=== PATIENT | male | born 1950 | race Caucasian/White ===

== ENCOUNTER 2016-06-04 18:17 | Inpatient (IN) | payer BC ==
[2016-06-04 19:04] LABS: PARTIAL THROMBOPLASTIN TIME 24.2 SEC (23.5-35.8); PROTHROMBIN TIME 13.5 SEC (11.4-15.4)
[2016-06-04 19:05] LABS: ABSOLUTE BASOPHILS # (AUTO) 0.1 10^3/uL (0.0-0.2); ABSOLUTE EOSINOPHILS # (AUTO) 0.4 10^3/uL (0.0-0.6); ABSOLUTE LYMPHOCYTES (AUTO) 1.6 10^3/uL (0.5-4.7); ABSOLUTE MONOCYTES (AUTO) 0.8 10^3/uL (0.1-1.4); ABSOLUTE NEUT (AUTO) 10.8 10^3/uL (1.7-8.2); BASOPHILS % (AUTO) 0.4 % (0-2); EOSINOPHILS % (AUTO) 3.2 % (0-6); HEMATOCRIT 39.7 % (37.9-51.0); HEMOGLOBIN 13.1 g/dL (13.5-17.0); HGB HCT DIFFERENCE -0.4; LYMPHOCYTES % (AUTO) 11.8 % (13-45); MEAN CORPUSCULAR HEMOGLOBIN 28.6 pg (27.0-33.4); MEAN CORPUSCULAR VOLUME 87 fl (80-97); MONOCYTES % (AUTO) 6.1 % (3-13); RED BLOOD COUNT 4.58 10^6/uL (4.35-5.55); RED CELL DISTRIBUTION WIDTH 13.6 % (11.5-14.0); SEGMENTED NEUTROPHILS % (AUTO) 78.5 % (42-78); WHITE BLOOD COUNT 13.7 10^3/uL (4.0-10.5)
--- NOTE | 2016-06-04 19:08 | ER Document Report ---
ED Neuro Symptoms/Deficit - General Stated Complaint: LEG NUMBNESS Time seen by provider: 19:08 Mode of Arrival: Stretcher Information source: Patient - HPI Patient complains to provider of: Difficulty standing, Difficulty walking, Falling, Weakness Onset: Yesterday Awoke with symptoms: Yes Symptoms are: Noted on awakening Duration: Continues in ED Quality of pain: No pain Was STROKE ALERT Called: No Baseline Cognitive: Alert, oriented X 3 Baseline Gait: Walks w/o assistance New weakness: RUE, RLE Altered sensation: RLE Decreased ability to stand/walk: Weak, Off balance Similar symptoms previously: No Recently seen / treated by doctor: No Notes: Patient is a 65-year-old male presents to the emergency room complaining of right foot tingling sensation and weakness that he first noted yesterday upon awakening in the morning, he denies any injury, although he did stumble and fall 2 today due to weakness and his inability to effectively bear weight on the right side, he denies any bowel or bladder dysfunction, no low back pain, no neck pain, reports that throughout the day when she is asked him various questions which should be easy for him to answer he responds "I don't know", patient denies any history of similar symptoms previously Past Medical History - General Information source: Patient, Relative - Kathy - Social History Smoking Status: Former Smoker Family History: Reviewed & Not Pertinent Review of Systems - Review of Systems Constitutional: No symptoms reported EENT: No symptoms reported Cardiovascular: No symptoms reported Respiratory: No symptoms reported Gastrointestinal: No symptoms reported Genitourinary: No symptoms reported Male Genitourinary: No symptoms reported Musculoskeletal: No symptoms reported Skin: No symptoms reported Hematologic/Lymphatic: No symptoms reported Neurological/Psychological: See HPI -: Yes All other systems reviewed and negative Physical Exam - Vital signs Vitals: Resp Pulse Ox 15 95 06/04/16 18:52 06/04/16 18:52 Interpretation: Normal - General General appearance: Appears well, Alert - HEENT Head: Normocephalic, Atraumatic Eyes: Normal Pupils: PERRL - Respiratory Respiratory status: No respiratory distress Chest status: Nontender Breath sounds: Normal Chest palpation: Normal - Cardiovascular Rhythm: Regular Heart sounds: Normal auscultation Murmur: No - Abdominal Inspection: Normal Distension: No distension Bowel sounds: Normal Tenderness: Nontender Organomegaly: No organomegaly - Back Back: Normal, Nontender - Extremities General upper extremity: Normal inspection, Nontender, Normal color, Normal ROM , Normal temperature General lower extremity: Normal inspection, Normal color, Normal temperature. No: Diego's sign - Neurological Neuro grossly intact: Yes Cognition: Normal Orientation: AAOx4 [place] Coma Scale Eye Opening: Spontaneous Alex Coma Scale Verbal: Oriented Alex Coma Scale Motor: Obeys Commands Alex Coma Scale Total: 15 Speech: Normal Additional motor exam normals: Other - Patient has 3 out of 5 strength in the right lower extremity and 4-5 strength in the right upper extremity, 2+ radial and DP pulses, he reports decreased sensation in the right foot - Psychological Associated symptoms: Normal affect, Normal mood - Skin Skin Temperature: Warm Skin Moisture: Dry Skin Color: Normal Course - Re-evaluation Re-evalutation: 06/05/16 00:05 Patient symptoms are consistent with likely acute CVA, however symptoms have been going on for greater than 24 hours now, therefore he does not meet criteria for TPA, initial workup in the emergency room is fairly unremarkable, therefore patient will be admitted to the hospitalist service for further evaluation and treatment - Vital Signs Vital signs: Temp Pulse Resp BP Pulse Ox 91 12 152/83 H 94 06/05/16 00:00 06/05/16 01:32 06/05/16 01:32 06/05/16 01:32 - Laboratory Result Diagrams: 06/04/16 18:35 06/04/16 18:35 Laboratory results interpreted by me: 06/04/16 06/04/16 18:35 18:35 WBC 13.7 H Hgb 13.1 L Seg Neutrophils % 78.5 H Lymphocytes % 11.8 L Absolute Neutrophils 10.8 H Carbon Dioxide 19 L Anion Gap 20 H BUN 29 H Creatinine 1.48 H Est GFR ( Amer) 58 L Est GFR (Non-Af Amer) 48 L Glucose 135 H Creatine Kinase 338 H - Diagnostic Test Radiology reviewed: Image reviewed, Reports reviewed - EKG Interpretation by Me EKG shows normal: Sinus rhythm Rate: Tachycardia Rhythm: PVC's - Transfer of Care Care transferred to following provider: Dr. Anderson Critical Care Note - Critical Care Note Total time excluding time spent on procedures (mins): 40 Comments: Patient with signs and symptoms consistent with acute CVA Discharge - Discharge Clinical Impression: Acute CVA (cerebrovascular accident) Condition: Fair Disposition: ADMITTED INPATIENT Admitting Provider: Hospitalist Unit Admitted: [facility]
[2016-06-04 19:11] LABS: ALANINE AMINOTRANSFERASE 37 U/L (21-72); ALBUMIN 4.5 g/dL (3.5-5.0); ALKALINE PHOSPHATASE 81 U/L (38-126); ASPARTATE AMINO TRANSFERASE 32 U/L (17-59); BILIRUBIN,DIRECT 0.3 mg/dL (0.0-0.4); BILIRUBIN,TOTAL 0.7 mg/dL (0.2-1.3); BLOOD UREA NITROGEN 29 mg/dL (7-20); CALCIUM 10.2 mg/dL (8.4-10.2); CREATINE KINASE 338 U/L (55-170); CREATININE RESULT 1.48 mg/dL (0.52-1.25); GLUCOSE 135 mg/dL (75-110); TOTAL PROTEIN 7.9 g/dL (6.3-8.2)
[2016-06-04 19:22] LABS: CARBON DIOXIDE 19 mmol/L (22-30); CHLORIDE 106 mmol/L (98-107); CREATINE KINASE MB 4.46 ng/mL (<4.55); POTASSIUM 4.9 mmol/L (3.6-5.0); SODIUM 144.5 mmol/L (137-145)
[2016-06-04 19:26] LABS: TROPONIN I < 0.012 ng/mL
[2016-06-04 19:27] LABS: ANION GAP 20 (5-19)
[2016-06-05] MEDS ORDERED: ACETAMINOPHEN 325 MG TABLET PO PRN (04:47)
[2016-06-05] MEDS ORDERED: DEXTROSE 40% GEL 15 GM TUBE PO PRN ×2 (04:48)
[2016-06-05] MEDS ORDERED: DEXTROSE 50%-WATER 25 GM/50 ML DISP.SYRIN IV PRN ×2 (04:48)
[2016-06-05] MEDS ORDERED: INSULIN LISPRO 100 UNIT/ML 3 ML VIAL SUBCUT PRN (04:48)
[2016-06-05] MEDS ORDERED: GLUCAGON,HUMAN RECOMB 1 MG INJ IM PRN (04:48)
--- NOTE | 2016-06-05 05:04 | PDOC H&P ---
History of Present Illness Admission Date/PCP: 06/05/16 02:20 PIERRE PRETTY MD Endocrin Dr. Granados Patient complains of: rt leg numbness History of Present Illness: JOLIE GONZALEZ is a 65 year old slightly obese male with underlying type 1.5 diabetes mellitus, hypertension, hyperlipidemia, with a history of atrial fibrillation, status post ablation in 2009, who presents to the emergency room for evaluation of above complaint. Upon awakening the morning of the third, he noted right foot tingling and weakness. Fell 2 that day due to right-sided weakness. Also was not able to answer a number of basic questions presented to him by . No prior such episodes, including stroke, TIA, mini stroke, or seizure. States symptoms have greatly improved, but is still not quite back to normal. No injury to neck or back. No headache, chest pain, abdominal pain. No nausea vomiting, fever or chills. Patient has been discussed with emergency room physician who evaluated the patient. . Laboratory results are listed in [employer] and are reviewed. X-ray summary results are listed below, with full report(s) reviewed. . EKG reviewed. No old EKG available for comparison. Social history/personal habits: . Has children. Lives with . Retired. Former smoker, but none for several years. Rare alcohol. No illicit drug use. Allergies/adverse reactions are listed in [employer] and are reviewed. NKDA. Home medications Home medications initially autopopulated into [employer] may not accurately reflect patient's true medications, dosages, and/or frequencies. REVIEW OF SYSTEMS: Constitutional: No fever or chills. Eyes: No current vision complaints. ENT: No swallowing problems or complaints. No hearing problems or complaints. Pulmonary: No current complaints. Cardiovascular: No current complaints, including chest pain. Gastrointestinal: No current complaints, including nausea or vomiting. Skin: No current complaints, including rashes. Hematologic: Easy bruising. Neurologic: See history and present illness. Musculoskeletal: No current complaints, including painful joints. Psychiatric: No current complaints, including anxiety or depression. Endocrine: No current complaints, including polyuria. Genitourinary: No current complaints, including dysuria. PHYSICAL EXAMINATION: 6 feet 1 inches tall. 95.3 kg. Blood pressure 133/85. Pulse 99 and regular. 96% saturation on room air. Respirations are 26 and unlabored. Temperature not recorded on the chart; skin feels normothermic. Somewhat overweight otherwise well nourished well-developed male appearing approximately his stated age. Initially asleep, but awakens easily. Wasn't alert and cooperative. No obvious distress other than somewhat anxious. Skin is warm and dry. No grossly obvious evidence of rash in areas of skin examined. No subcutaneous nodules palpated. ENT: Hearing grossly normal to normal conversation. Tongue midline on protrusion pink and slightly moist. Eyes: No scleral icterus. Pupils equal and reactive to light at 4 mm. [place] conjunctivae. No raccoon eyes. Neck is supple and nontender to gentle active range of motion and palpation. Midline trachea. No palpable thyroid nodule mass enlargement or tenderness. Lymphatic: No palpable cervical or clavicular nodes. Neck and lymphatic exams limited by patient body habitus. Psychiatric: Reasonable insight into acute and chronic medical issues. Oriented to time location and why here. Lungs: Auscultation reveals clear and equal breath sounds bilaterally. No use of accessory respiratory muscles. Cardiovascular: Heart regular rate and rhythm, without gallop murmur or rub. No carotid or abdominal aortic bruits. No ankle or pedal edema. palpable dorsalis pedis pulses. Abdomen: soft, slightly distended nontender with positive bowel sounds. Unable to adequately evaluate abdomen for masses or organomegaly due to distention. Extremities: Hands and Feet are warm and dry. No calf tenderness to compression. No grossly obvious visual evidence of calf swelling. Gentle manipulation of upper and lower extremities fails to reveal any obvious evidence of injury or instability to involved major joints. Neurologic: Cranial Nerves II through XII are grossly intact. Light touch intact at face, upper and lower extremities. Motor function of major muscle groups upper and lower extremities 5 over 5 and symmetric, with the exception that hand butter printer on the right is very slightly weaker than on the left, with similar finding on flexion of the right thigh at the hip versus that on the left. Patellar reflexes absent. Absent Babinski. Past Medical History Cardiac Medical History: Reports: Atrial Fibrillation, Hyperlipidema, Hypertension Denies: Congestive Heart Failure, DVT, Myocardial Infarction, Pulmonary Embolism Pulmonary Medical History: Denies: Asthma, Chronic Obstructive Pulmonary Disease (COPD), Sleep Apnea Endocrine Medical History: Reports: Diabetes Mellitus Type 1 - Type I.5 Denies: Hyperthyroidism, Hypothyroidism GI Medical History: Denies: Cirrhosis, Gastroesophageal Reflux Disease, Hepatitis, Peptic Ulcer Disease Musculoskeltal Medical History: Denies: Arthritis Psychiatric Medical History: Denies: Alcohol Dependency, Depression, General Anxiety Disorder, Substance Abuse, Tobacco Dependency Infectious Medical History: Denies: Clostridium Difficile, Hepatitis B, Hepatitis C, Methicillin- Resistant Staph Aureus Past Surgical History Past Surgical History: Reports: Orthopedic Surgery - Knee surgery, Other - Ablation for atrial fibrillation. Social History Information Source: Patient, Emergency Med Personnel, [facility] Records Lives with: Spouse/Significant other Smoking Status: Former Smoker Frequency of Alcohol Use: Occasional Drugs: None - Advance Directive Resuscitation Status: Full Code Surrogate healthcare decision maker:: Family History Family History: Reviewed & Not Pertinent, CAD Parental Family History Reviewed: Yes Children Family History Reviewed: Yes Sibling(s) Family History Reviewed.: Yes Medication/Allergy Home Medications: Atorvastatin Calcium [Atorvastatin Calcium] 1 tab PO QHS 06/05/16 Glimepiride [Glimepiride] 1 tab PO DAILY 06/05/16 Insulin Degludec [Tresiba Flextouch U-200] 30 units SQ DAILY 06/05/16 Metformin HCl [Metformin HCl ER] 1 tab PO BID 06/05/16 Ramipril [Ramipril] 1 cap PO DAILY 06/05/16 Allergies/Adverse Reactions: Sulfa (Sulfonamide Antibiotics) Allergy (Verified 06/05/16 05:32) Physical Exam Vital Signs: Temp Pulse Resp BP Pulse Ox 91 11 L 122/67 96 06/05/16 00:00 06/05/16 02:32 06/05/16 02:32 06/05/16 02:32 Intake & Output 06/04/16 06/05/16 06/06/16 00:59 00:59 00:59 Weight 95.254 kg Results Impressions: Chest X-Ray 06/04/16 18:59 IMPRESSION: NO ACUTE RADIOGRAPHIC FINDING IN THE CHEST. Head CT 06/04/16 18:59 IMPRESSION: MILD CHRONIC CHANGES OF ATROPHY AND MICROVASCULAR ISCHEMIA. NO ACUTE PROCESS. Assessment & Plan - Diagnosis (1) HLD (hyperlipidemia) Qualifiers: Hyperlipidemia type: unspecified Qualified Code(s): E78.5 - Hyperlipidemia, unspecified Is this a current diagnosis for this admission?: YesPlan: Lipid panel. Resume home medications as appropriate once these have been determined and reviewed. (2) HTN (hypertension) Qualifiers: Hypertension type: essential hypertension Qualified Code(s): I10 - Essential (primary) hypertension Is this a current diagnosis for this admission?: YesPlan: Permissive hypertension. (3) Diabetes mellitus type 1.5, managed as type 2 Is this a current diagnosis for this admission?: YesPlan: Accu-Cheks with appropriate sliding scale coverage. Clear liquid diet; advance as tolerated.Resume home medications as appropriate once these have been determined and reviewed. (4) Right hemiparesis Is this a current diagnosis for this admission?: Yes (5) Acute focal neurological deficit Is this a current diagnosis for this admission?: YesPlan: Patient will be admitted under CVA/TIA protocol. Multiple imaging procedures, intracranial, vascular, and cardiac. lipid panel. Permissive hypertension. Patient is a full code. I have strongly urged patient not to get out of bed without calling nursing staff, to avoid a fall with injury.] Knee high SCDs for DVT prophylaxis, along with subcutaneous heparin. Impression and plans were discussed with patient, who concurs. Time spent in evaluation and management of patient: 63 minutes (6) Renal insufficiency Is this a current diagnosis for this admission?: YesPlan: No old labs available for comparison. Follow-up Chem-7. - Inpatient Certification Based on my medical assessment, after consideration of the patient's comorbidities, presenting symptoms, or acuity I expect that the services needed warrant INPATIENT care.: Yes I certify that my determination is in accordance with my understanding of Medicare's requirements for reasonable and necessary INPATIENT services [42 CFR 412.3e].: Yes Medical Necessity: Need Close Monitoring Due to Risk of Patient Decompensation, Need for Neurological Checks, Risk of Diagnosis Which Will Require Inpatient Eval/Care/Monitoring Post Hospital Care: D/C or Transfer Summary
[2016-06-05 06:47] LABS: ABSOLUTE BASOPHILS # (AUTO) 0.1 10^3/uL (0.0-0.2); ABSOLUTE LYMPHOCYTES (AUTO) 2.2 10^3/uL (0.5-4.7); ABSOLUTE MONOCYTES (AUTO) 0.7 10^3/uL (0.1-1.4); BASOPHILS % (AUTO) 0.6 % (0-2); EOSINOPHILS % (AUTO) 11.4 % (0-6); HEMATOCRIT 38.9 % (37.9-51.0); HEMOGLOBIN 12.9 g/dL (13.5-17.0); HGB HCT DIFFERENCE -0.2; LYMPHOCYTES % (AUTO) 24.6 % (13-45); MEAN CORPUSCULAR HEMOGLOBIN 28.8 pg (27.0-33.4); MEAN CORPUSCULAR HGB CONC 33.2 g/dL (32.0-36.0); MEAN CORPUSCULAR VOLUME 87 fl (80-97); MONOCYTES % (AUTO) 7.9 % (3-13); RED BLOOD COUNT 4.48 10^6/uL (4.35-5.55); RED CELL DISTRIBUTION WIDTH 13.5 % (11.5-14.0); SEGMENTED NEUTROPHILS % (AUTO) 55.5 % (42-78)
[2016-06-05 06:59] LABS: ANION GAP 14 (5-19); BLOOD UREA NITROGEN 30 mg/dL (7-20); CALCIUM 10.1 mg/dL (8.4-10.2); CARBON DIOXIDE 24 mmol/L (22-30); CHLORIDE 107 mmol/L (98-107); CREATININE RESULT 1.45 mg/dL (0.52-1.25); Direct HDL 36 mg/dL (>40); GLUCOSE 134 mg/dL (75-110); POTASSIUM 4.8 mmol/L (3.6-5.0); SODIUM 144.9 mmol/L (137-145); TRIGLYCERIDES 70 mg/dL (<150)
[2016-06-05 07:10] LABS: DIRECT LDL 64 mg/dL (<100)
[2016-06-05] MEDS: ASPIRIN 325 MG TABLET, ENT COATED PO SCH (09:29)
[2016-06-05] MEDS: HEPARIN SOD (PORCINE) 5,000 UNIT/ML 1 ML SYRINGE SUBCUT SCH ×2 (09:29→22:19)
[2016-06-05] MEDS: DOCUSATE SODIUM 100 MG CAPSULE PO SCH ×2 (09:42→16:52)
[2016-06-05 10:05] LABS: APPEARANCE,URINE CLEAR; BILIRUBIN,URINE NEGATIVE (NEGATIVE); GLUCOSE, URINE >=500 mg/dL (NEGATIVE); KETONES,URINE NEGATIVE (NEGATIVE); LEUKOCYTE ESTERASE,URINE NEGATIVE (NEGATIVE); NITRITE,URINE NEGATIVE (NEGATIVE); PROTEIN,URINE 30 mg/dL (NEGATIVE); URINE SPECIFIC GRAVITY 1.016; UROBILINOGEN,URINE NEGATIVE mg/dL (<2.0)
--- NOTE | 2016-06-05 13:54 | XCELERA REPORT ---
[address] [address] Transthoracic Echocardiogram Report Name: JOLIE GONZALEZ Age: 65 yrs Gender: Male : 1950 Patient Status: Inpatient Patient Location: [id number]\S\318\[id number]\B Study Date: 06/05/2016 09:52 AM Height: 73 in Weight: 210 lb BSA: 2.2 m2 Procedure: A complete two-dimensional transthoracic echocardiogram was performed (2D, M-mode, spectral and color flow Doppler). The study was technically adequate with some images being suboptimal in quality. Reason For Study: tia vs cva--rt hemiparesis Ordering Physician: DOROTHY ZARATE Performed By: Camila Escobar Interpretation Summary The left ventricular ejection fraction is normal. There is borderline concentric left ventricular hypertrophy. Doppler measurements suggest pseudonormalized left ventricular relaxation, which is associated with grade II/IV or mild to moderate diastolic dysfunction The left ventricle is grossly normal size. Wall motion cannot be accurately commented on, but no definite regional wall motion abnormalities noted. The right ventricular systolic function is normal. The left atrial size is normal. The right atrium is normal. There is a trace to mild amount of mitral regurgitation There is no mitral valve stenosis. No aortic regurgitation is present. There is no aortic valve stenosis There is a trace or physiologic amount of tricuspid regurgitation Right ventricular systolic pressure is at the upper limits of normal The aortic root is not well visualized. The inferior vena cava appeared normal and decreased > 50% with respiration (RAP 5-10 mmHg) There is no pericardial effusion. No definite cardiac source of CVA/TIA noted on this particular trans- thoracic study. Consider LAVERN if clinically indicated. May consider mobile cardiac telemetry monitoring (MCT) for ruling out transient AFIB. MMode/2D Measurements \T\ Calculations RVDd: 3.0 cm LVIDd: 5.1 cm FS: 34.3 % Ao root diam: 3.2 cm IVSd: 0.89 cm LVIDs: 3.3 cm EDV(Teich): 122.5 ml LVPWd: 0.93 cm ESV(Teich): 45.2 ml Ao root area: 8.1 cm2 EF(Teich): 63.1 % LA dimension: 3.4 cm Doppler Measurements \T\ Calculations MV E max jihan: MV P1/2t max jihan: Ao V2 max: LV V1 max P.4 cm/sec 44.4 cm/sec 89.7 cm/sec 3.5 mmHg MV A max jihan: MV P1/2t: 50.1 msec Ao max PG: LV V1 max: 77.0 cm/sec 3.2 mmHg 93.8 cm/sec MV E/A: 0.56 MVA(P1/2t): 4.4 cm2 MV dec slope: 259.9 cm/sec2 PA V2 max: PI end-d jihan: TR max jihan: 62.9 cm/sec 98.9 cm/sec 219.8 cm/sec PA max PG: TR max P.6 mmHg 19.3 mmHg Left Ventricle The left ventricle is grossly normal size. There is borderline concentric left ventricular hypertrophy. The left ventricular ejection fraction is normal. Doppler measurements suggest pseudonormalized left ventricular relaxation, which is associated with grade II/IV or mild to moderate diastolic dysfunction. Wall motion cannot be accurately commented on, but no definite regional wall motion abnormalities noted. Right Ventricle The right ventricle is normal in size, thickness and function. There is normal right ventricular wall thickness. The right ventricular systolic function is normal. Atria The right atrium is normal. The left atrial size is normal. Interarterial septum not well visualized and not well dopplered. Cannot comment on ASD/PFO presence. Mitral Valve The mitral valve is grossly normal. There is no mitral valve stenosis. There is a trace to mild amount of mitral regurgitation. Aortic Valve The aortic valve is grossly normal. There is no aortic valve stenosis. No aortic regurgitation is present. Tricuspid Valve The tricuspid valve is not well visualized, but is grossly normal. There is no tricuspid stenosis. There is a trace or physiologic amount of tricuspid regurgitation. Right ventricular systolic pressure is at the upper limits of normal. Pulmonic Valve The pulmonic valve is not well visualized. Great Vessels The aortic root is not well visualized. The inferior vena cava appeared normal and decreased > 50% with respiration (RAP 5-10 mmHg). Effusions There is no pericardial effusion. There is no pleural effusion. Incidental Findings No definite cardiac source of CVA/TIA noted on this particular trans- thoracic study. Consider LAVERN if clinically indicated. May consider mobile cardiac telemetry monitoring (MCT) for ruling out transient AFIB. : DOROTHY ZARATE > Amanuel Rondon
[2016-06-05] MEDS ORDERED: RAMIPRIL 5 MG CAPSULE PO ONE (15:00)
--- NOTE | 2016-06-05 15:23 | PDOC PROGRESS REPORT ---
Subjective Progress Note for:: 06/05/16 Subjective:: Patient is being seen on morning rounds. He is awake alert oriented 3. He continues to have some weakness and numbness in the right lower extremity, but he states is much improved since admission. He denies any chest pain, palpitations or dyspnea. He denies shortness of breath, or cough. He denies any nausea, vomiting or abdominal pain. He has no facial drooping, upper extremity weakness, only mild weakness of the right lower extremity. Physical Exam Vital Signs: Temp Pulse Resp BP Pulse Ox 97.5 F 92 18 149/87 H 98 06/05/16 07:23 06/05/16 07:23 06/05/16 07:23 06/05/16 07:54 06/05/16 07:23 Intake & Output 06/04/16 06/05/16 06/06/16 06:59 06:59 06:59 Weight 106 kg General appearance: PRESENT: no acute distress, well-developed, well-nourished Head exam: PRESENT: atraumatic, normocephalic Eye exam: PRESENT: conjunctiva pink, EOMI, PERRLA. ABSENT: scleral icterus Ear exam: PRESENT: normal external ear exam Mouth exam: PRESENT: moist, tongue midline Neck exam: ABSENT: carotid bruit, JVD, lymphadenopathy, thyromegaly Respiratory exam: PRESENT: clear to auscultation enio. ABSENT: rales, rhonchi, wheezes Cardiovascular exam: PRESENT: RRR. ABSENT: diastolic murmur, rubs, systolic murmur Pulses: PRESENT: normal dorsalis pedis pul Vascular exam: PRESENT: normal capillary refill GI/Abdominal exam: PRESENT: normal bowel sounds, soft. ABSENT: distended, guarding, mass, organolmegaly, rebound, tenderness Rectal exam: PRESENT: deferred Extremities exam: PRESENT: full ROM. ABSENT: calf tenderness, clubbing, pedal edema Musculoskeletal exam: PRESENT: full ROM Neurological exam: PRESENT: alert, awake, oriented to person, oriented to place , oriented to time, oriented to situation, CN II-XII grossly intact, other - right lower extremity weakness. ABSENT: motor sensory deficit Psychiatric exam: PRESENT: appropriate affect, normal mood. ABSENT: homicidal ideation, suicidal ideation Skin exam: PRESENT: dry, intact, warm. ABSENT: cyanosis, rash Results Laboratory Results: 06/05/16 06:30 06/05/16 06:30 06/05/16 06/05/16 06/05/16 06:30 06:30 09:30 WBC 9.0 RBC 4.48 Hgb 12.9 L Hct 38.9 MCV 87 MCH 28.8 MCHC 33.2 RDW 13.5 Plt Count 206 Seg Neutrophils % 55.5 Lymphocytes % 24.6 Monocytes % 7.9 Eosinophils % 11.4 H Basophils % 0.6 Absolute Neutrophils 5.0 Absolute Lymphocytes 2.2 Absolute Monocytes 0.7 Absolute Eosinophils 1.0 H Absolute Basophils 0.1 Sodium 144.9 Potassium 4.8 Chloride 107 Carbon Dioxide 24 Anion Gap 14 BUN 30 H Creatinine 1.45 H Est GFR ( Amer) 59 L Est GFR (Non-Af Amer) 49 L Glucose 134 H Calcium 10.1 Triglycerides 70 Cholesterol 117.90 LDL Cholesterol Direct 64 VLDL Cholesterol 14.0 HDL Cholesterol 36 L Urine Color YELLOW Urine Appearance CLEAR Urine pH 5.0 Ur Specific [place] 1.016 Urine Protein 30 H Urine Glucose (UA) >=500 H Urine Ketones NEGATIVE Urine Blood SMALL H Urine Nitrite NEGATIVE Ur Leukocyte Esterase NEGATIVE Urine WBC (Auto) 1 Urine RBC (Auto) 0 Impressions: Chest X-Ray 06/04/16 18:59 IMPRESSION: NO ACUTE RADIOGRAPHIC FINDING IN THE CHEST. Head CT 06/04/16 18:59 IMPRESSION: MILD CHRONIC CHANGES OF ATROPHY AND MICROVASCULAR ISCHEMIA. NO ACUTE PROCESS. Brain MRI with MRA 06/05/16 04:53 IMPRESSION: Acute nonhemorrhagic punctate infarcts in the left frontal cortex and subcortical white matter anteriorly, punctate acute subcortical nonhemorrhagic infarct left posterior frontal region. Unremarkable [place] MRA exam Carotid Doppler Study 06/05/16 04:54 IMPRESSION: Right: Greater than 70% stenosis distal common carotid artery. 50 - 69% stenosis of the proximal ICA. Left: Less than 50% stenosis of the ICA. Head MRI 06/05/16 07:54 IMPRESSION: Acute nonhemorrhagic punctate infarcts in the left frontal cortex and subcortical white matter anteriorly, punctate acute subcortical nonhemorrhagic infarct left posterior frontal region. Unremarkable [place] MRA exam Assessment & Plan - Diagnosis (1) Acute CVA (cerebrovascular accident) Is this a current diagnosis for this admission?: YesPlan: MRI shows acute punctate infarcts left frontal cortex (2) Acute focal neurological deficit Is this a current diagnosis for this admission?: Yes (3) Right hemiparesis Is this a current diagnosis for this admission?: YesPlan: Patient with resolving right hemiparesis, now with 4/5 right lower extremity strength (4) Renal insufficiency Is this a current diagnosis for this admission?: YesPlan: Avoid nephrotoxic medications and dosages. (5) Diabetes mellitus type 1.5, managed as type 2 Is this a current diagnosis for this admission?: YesPlan: Continue home medications and sliding scale coverage (6) HLD (hyperlipidemia) Qualifiers: Hyperlipidemia type: unspecified Qualified Code(s): E78.5 - Hyperlipidemia, unspecified Is this a current diagnosis for this admission?: YesPlan: continue statin (7) HTN (hypertension) Qualifiers: Hypertension type: essential hypertension Qualified Code(s): I10 - Essential (primary) hypertension Is this a current diagnosis for this admission?: YesPlan: Continue current antihypertensives, patient is normotensive. - Time Time Spent with patient: 25-34 minutes Medications reviewed and adjusted accordingly: Yes Anticipated discharge: Home with Homehealth Within: within 24 hours
[2016-06-05] MEDS: METFORMIN HCL 500 MG TABLET PO SCH ×2 (16:52→22:18)
[2016-06-05] MEDS ORDERED: (PENDING PHARMACY ID) (Metformin Hcl [Metformin Hcl Er] 1,000 MG) PO SCH (18:00)
[2016-06-05] MEDS ORDERED: ATORVASTATIN CALCIUM 20 MG TABLET PO SCH (22:00)
[2016-06-06] MEDS: METFORMIN HCL 500 MG TABLET PO SCH ×2 (08:45→12:01)
[2016-06-06] MEDS ORDERED: INSULIN DEGLUDEC 30 UNIT SQ SCH (10:00)
[2016-06-06] MEDS ORDERED: INSULIN DEGLUDEC 30 UNIT INJ SCH ×2 (10:00)
[2016-06-06] MEDS ORDERED: RAMIPRIL 5 MG CAPSULE PO SCH (10:00)
[2016-06-06] MEDS ORDERED: GLIMEPIRIDE 4 MG TABLET PO SCH (10:00)
[2016-06-06] MEDS: HEPARIN SOD (PORCINE) 5,000 UNIT/ML 1 ML SYRINGE SUBCUT SCH (10:13)
[2016-06-06] MEDS: ASPIRIN 325 MG TABLET, ENT COATED PO SCH (10:13)
[2016-06-06] MEDS: DOCUSATE SODIUM 100 MG CAPSULE PO SCH (10:19)
[2016-06-06 12:44] VITALS: BP 124/82
--- NOTE | 2016-06-06 15:29 | PDOC DISCHARGE SUMMARY ---
General - Admit/Disc Date/PCP Admission Date/Primary Care Provider: 06/05/16 04:47 PIERRE PRETTY MD Discharge Date: 06/06/16 - Discharge Diagnosis (1) Acute CVA (cerebrovascular accident) Is this a current diagnosis for this admission?: YesSummary: Patient had 2 punctate infarcts in the left frontal cortex. His placed on full aspirin. Initially he had significant right-sided weakness including his upper arm. Right upper arm weakness was resolving, he continued to have some paresthesia and mild weakness in the right lower extremity 4 over 5. He was evaluated by physical therapy and occupational therapy. He was recommended to have home physical therapy and occupational therapy continued. Patient underwent carotid duplex which was negative, transthoracic echo which showed no abnormalities and normal EF, MRI showed 2 punctate infarcts in the left cerebral cortex. He'll follow-up with his cardiology and [place] for LAVERN to rule out PFO (2) Acute focal neurological deficit Is this a current diagnosis for this admission?: YesSummary: As #1. (3) Right hemiparesis Is this a current diagnosis for this admission?: YesSummary: Improvement of symptoms from admission. He now has 4 over 5 muscle strength in right upper and lower extremeties. No facial droop or dysphagia. (4) Renal insufficiency Is this a current diagnosis for this admission?: YesSummary: Current is back to baseline. 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 (6) HLD (hyperlipidemia) Is this a current diagnosis for this admission?: YesSummary: Continue statin (7) HTN (hypertension) Is this a current diagnosis for this admission?: YesSummary: Continue current medications he is normotensive. - Additional Information Resuscitation Status: Full Code Discharge Diet: Diabetic Discharge Activity: Activity As Tolerated, Balance Activity w/Rest, Slowly Increase Activity Home Medications: Atorvastatin Calcium 20 mg PO QHS 06/05/16 Glimepiride 4 mg PO DAILY 06/05/16 Insulin Degludec [Tresiba Flextouch U-200] 30 units SQ DAILY 06/05/16 Metformin HCl [Metformin HCl ER] 1,000 mg PO BID 06/05/16 Ramipril 5 mg PO DAILY 06/05/16 Acetaminophen [Tylenol 325 mg Tablet] 650 mg PO Q4HP PRN tablet 06/06/16 Aspirin [Ecotrin 325 mg EC Tablet] 325 mg PO DAILY tabec 06/06/16 Walker [Folding Walker] 1 each MC ASDIR PRN #1 each 06/06/16 History of Present Illness Patient complains of: Right leg numbness History of Present Illness: JOLIE GONZALEZ is a 65 year old slightly obese male with underlying type 1.5 diabetes mellitus, hypertension, hyperlipidemia, with a history of SVT , status post ablation in 2009, who presents to the emergency room for evaluation of above complaint. Upon awakening the morning of the third, he noted right foot tingling and weakness. Fell 2 that day due to right-sided weakness. Also was not able to answer a number of basic questions presented to him by . No prior such episodes, including stroke, TIA, mini stroke, or seizure. States symptoms have greatly improved, but is still not quite back to normal. No injury to neck or back. No headache, chest pain, abdominal pain. No nausea vomiting, fever or chills. . Hospital Course Hospital Course: Patient was admitted to [facility] on telemetry. He had MENDS done per protocol overnight. He was able to pass bedside swallow evaluation by nursing. Following morning he was highly by physical therapy and occupational therapy. He was able to ambulate with a rolling walker. Therapy felt he would be safely discharged with home physical therapy and occupational therapy. He underwent carotid duplex which was unremarkable for any stenosis. He underwent transthoracic echocardiogram which showed normal ejection fraction no valvular abnormalities. MRI of the brain showed punctate infarcts the left cerebral cortex which were acute. He had no arrhythmias on telemetry. Discharge planning was consulted to assist with discharge plan. Patient would like to follow-up with his director community organization for outpatient [facility] to rule out PFO is cause of his stroke. Will follow-up with his primary care provider in one week. Physical Exam Vital Signs: Temp Pulse Resp BP Pulse Ox 98.7 F 94 20 149/87 H 97 06/06/16 12:17 06/06/16 12:17 06/06/16 12:17 06/06/16 12:17 06/06/16 12:17 Intake & Output 06/05/16 06/06/16 06/07/16 06:59 06:59 06:59 Intake Total 1139 710 Balance 1139 710 Weight 106 kg General appearance: PRESENT: no acute distress, well-developed, well-nourished Head exam: PRESENT: atraumatic, normocephalic Eye exam: PRESENT: conjunctiva pink, EOMI, PERRLA. ABSENT: scleral icterus Ear exam: PRESENT: normal external ear exam Mouth exam: PRESENT: moist, tongue midline Neck exam: ABSENT: carotid bruit, JVD, lymphadenopathy, thyromegaly Respiratory exam: PRESENT: clear to auscultation enio. ABSENT: rales, rhonchi, wheezes Cardiovascular exam: PRESENT: RRR. ABSENT: diastolic murmur, rubs, systolic murmur Pulses: PRESENT: normal dorsalis pedis pul Vascular exam: PRESENT: normal capillary refill GI/Abdominal exam: PRESENT: normal bowel sounds, soft. ABSENT: distended, guarding, mass, organolmegaly, rebound, tenderness Rectal exam: PRESENT: deferred Extremities exam: PRESENT: full ROM. ABSENT: calf tenderness, clubbing, pedal edema Musculoskeletal exam: PRESENT: ambulatory Neurological exam: PRESENT: alert, awake, oriented to person, oriented to place , oriented to time, oriented to situation, CN II-XII grossly intact, other - 4/ 5 right extremity strength, 5/5 on the left. ABSENT: motor sensory deficit Psychiatric exam: PRESENT: appropriate affect, normal mood. ABSENT: homicidal ideation, suicidal ideation Skin exam: PRESENT: dry, intact, warm. ABSENT: cyanosis, rash Results Laboratory Results: 06/05/16 06:30 06/05/16 06:30 Impressions: Chest X-Ray 06/04/16 18:59 IMPRESSION: NO ACUTE RADIOGRAPHIC FINDING IN THE CHEST. Head CT 06/04/16 18:59 IMPRESSION: MILD CHRONIC CHANGES OF ATROPHY AND MICROVASCULAR ISCHEMIA. NO ACUTE PROCESS. Brain MRI with MRA 06/05/16 04:53 IMPRESSION: Acute nonhemorrhagic punctate infarcts in the left frontal cortex and subcortical white matter anteriorly, punctate acute subcortical nonhemorrhagic infarct left posterior frontal region. Unremarkable [place] MRA exam Carotid Doppler Study 06/05/16 04:54 IMPRESSION: Right: Greater than 70% stenosis distal common carotid artery. 50 - 69% stenosis of the proximal ICA. Left: Less than 50% stenosis of the ICA. Head MRI 06/05/16 07:54 IMPRESSION: Acute nonhemorrhagic punctate infarcts in the left frontal cortex and subcortical white matter anteriorly, punctate acute subcortical nonhemorrhagic infarct left posterior frontal region. Unremarkable [place] MRA exam Qualifiers P[place]INT BEING DISCHARGED WITH ANY OF THE FOLLOWING DIAGNOSIS?: Stroke Stroke Pt being discharged on Anti-thrombolytic therapy?: Yes Stroke Pt being discharged on Anti-coagulation therapy?: Yes Stroke Pt being discharged on Statins?: Yes Plan Discharge Plan: Home with home health and home physical therapy Time Spent: Less than 30 Minutes
--- NOTE | 2016-06-06 15:39 | EKG REPORT ---
SEVERITY:- OTHERWISE NORMAL ECG - SINUS TACHYCARDIA : Confirmed by: Keke Pagan MD 06-Jun-2016 15:38:22
--- NOTE | 2016-06-06 15:41 | EKG REPORT ---
SEVERITY:- ABNORMAL ECG - SINUS TACHYCARDIA MULTIFORM VENTRICULAR PREMATURE COMPLEXES BORDERLINE LEFT AXIS DEVIATION : Confirmed by: Keke Pagan MD 06-Jun-2016 15:40:35
== END 2016-06-06 12:58 | disposition home health service (06) | DRG 65 ==
LOC: ER 18:17 → EH 06-05 02:20 → UNDOADMIN 06-05 02:20 → EH 06-05 04:47 → 3W 06-05 07:38
PROVIDERS: ADMIT Family Medicine; ATTEND Family Medicine
DX: I63.9 Cerebral infarction, unspecified (principal); G81.91 Hemiplegia, unspecified affecting right dominant side; R29.818 Other symptoms and signs involving the nervous system; E13.9 Other specified diabetes mellitus without complications; E78.5 Hyperlipidemia, unspecified; I10 Essential (primary) hypertension; W18.39XA Other fall on same level, initial encounter; N28.9 Disorder of kidney and ureter, unspecified; I49.3 Ventricular premature depolarization; E66.9 Obesity, unspecified; Z68.30 Body mass index [BMI] 30.0-30.9, adult; Z79.899 Other long term (current) drug therapy; Z87.891 Personal history of nicotine dependence; Z79.4 Long term (current) use of insulin; Z88.2 Allergy status to sulfonamides; Z82.49 Family history of ischemic heart disease and other diseases of the circulatory system
CPT/HCPCS: 36415; 70450; 70544; 70551; 71010; 80048; 80053; 80061; 81001; 82550; 82553; 82962; 84484; 85025; 85610; 85730; 93005; 93010; 93306; 93880; 99291; J1644; J1815; J3490

== ENCOUNTER 2016-06-06 15:01 | Emergency (ER) | payer BC ==
--- NOTE | 2016-06-06 15:13 | ER Document Report ---
ED Neuro Symptoms/Deficit - General Stated Complaint: POSSIBLE STROKE Time seen by provider: 15:13 Mode of Arrival: Medic Information source: Emergency Med Personnel TRAVEL OUTSIDE OF THE [place] IN LAST 30 DAYS: No - HPI Patient complains to provider of: Paralysis, Speech Impairment Onset: Just prior to arrival Awoke with symptoms: No Symptoms are: Worse/persistent Duration: Continues in ED Quality of pain: No pain Was STROKE ALERT Called: Yes Notes: Patient is a 65-year-old male who returns to the emergency room today with right -sided weakness and is now aphasic, patient was admitted by this physician 2 days prior for right-sided weakness, he was discharged earlier in the day today , reports that at time of discharge he stumbled on his right side, nearly falling which required nursing staff to assist him, by the time she got home with them and in their driveway, he was unable to speak and once again was not moving his right side at all, at time of arrival in the emergency room patient continues to run have right-sided deficits and remains aphasic - Related Data Allergies/Adverse Reactions: Sulfa (Sulfonamide Antibiotics) Allergy (Verified 06/05/16 05:32) Past Medical History - General Information source: Relative - Patient's - Social History Smoking Status: Former Smoker Family History: Reviewed & Not Pertinent, CAD - Past Medical History Cardiac Medical History: Reports: Hx Atrial Fibrillation, Hx Hypercholesterolemia, Hx Hypertension Denies: Hx Congestive Heart Failure, Hx DVT, Hx Heart Attack, Hx Pulmonary Embolism Pulmonary Medical History: Denies: Hx Asthma, Hx COPD, Hx Sleep Apnea Endocrine Medical History: Reports: Hx Diabetes Mellitus Type 1 - Type I.5. Denies: Hx Hyperthyroidism, Hx Hypothyroidism GI Medical History: Denies: Hx Cirrhosis, Hx Gastroesophageal Reflux Disease, Hx Hepatitis Musculoskeltal Medical History: Denies Hx Arthritis Psychiatric Medical History: Denies: Hx Depression Infectious Medical History: Denies: Hx C-Diff, Hx Hepatitis, Hx MRSA Past Surgical History: Reports: Hx Orthopedic Surgery - Knee surgery, Other - Ablation for atrial fibrillation. Review of Systems - Review of Systems -: Yes ROS unobtainable due to patient's medical condition Neurological/Psychological: See HPI Physical Exam - Vital signs Interpretation: Tachycardic - General General appearance: Alert - HEENT Head: Normocephalic, Atraumatic Eyes: Normal Conjunctiva: Normal Extraocular movements intact: Yes Eyelashes: Normal Pupils: PERRL Sinus: Normal Nasal: Normal Pharynx: Normal Neck: Normal - Respiratory Respiratory status: No respiratory distress Chest status: Nontender Breath sounds: Normal Chest palpation: Normal - Cardiovascular Rhythm: Regular, Tachycardia Heart sounds: Normal auscultation Murmur: No - Abdominal Inspection: Normal Distension: No distension Bowel sounds: Normal Tenderness: Nontender Organomegaly: No organomegaly - Back Back: Normal - Extremities General upper extremity: Normal color, Normal temperature General lower extremity: Normal color, Normal temperature - Neurological Speech: Expressive aphasia Cranial nerves: Facial palsy - Slight right-sided facial droop Motor strength normal: No: RUE, RLE Additional motor exam normals: Weakness - Patient with 3 out of 5 strength in the right upper extremity, 0 out of 5 strength in the right lower extremity - Skin Skin Temperature: Warm Skin Moisture: Dry Skin Color: Normal Course - Re-evaluation Re-evalutation: 06/06/16 15:53 call to [facility], spoke with Maria Elena, at transfer Center, requested call back for possible transfer of patient 06/06/16 16:[address] Malagon, hospitalist at [facility], who reports that they do not have neurology services and therefore cannot accept this patient 06/06/16 16:05 call to [facility], requested callback from neurology 06/06/16 16:17 Patient was discussed with neurologist at [facility] in [place], Dr. Pedraza, who states that TPA is now contraindicated as patient had a recent stroke which is documented on an MRI that was performed yesterday Patient's family stating that they would prefer that patient be transferred to [facility] if transfer is in order, as patient's son lives in the [facility] 06/06/16 20:00 A call was placed to [facility], requested callback for transfer patient 06/06/16 20:27 Patient was discussed with resident, Dr. Mcnally at [facility], who accepts patient for transfer under service of Dr. Lyndon Pereyra 06/06/16 23:21 Patient resting comfortably on stretcher, currently being transported out of this emergency room on EMS crew stretcher, patient is awake and alert, able to answer questions appropriately, stable for transport - Laboratory Result Diagrams: 06/06/16 15:18 06/06/16 15:18 - Diagnostic Test Radiology reviewed: Image reviewed, Reports reviewed - EKG Interpretation by Me EKG shows normal: Sinus rhythm Rate: Tachycardia Critical Care Note - Critical Care Note Total time excluding time spent on procedures (mins): 60 Comments: Patient arrived to the emergency room as stroke alert, with right-sided deficits and expressive aphasia, requiring immediate imaging and labs, consult with specialist and eventual transfer to tertiary care center Discharge - Discharge Clinical Impression: Acute cerebrovascular accident (CVA) Condition: Fair Disposition: [facility]
--- NOTE | 2016-06-06 15:38 | EKG REPORT ---
SEVERITY:- OTHERWISE NORMAL ECG - SINUS TACHYCARDIA : Confirmed by: Keke Pagan MD 06-Jun-2016 15:37:57
[2016-06-06 15:44] LABS: PROTHROMBIN TIME 13.2 SEC (11.4-15.4)
[2016-06-06 15:45] LABS: ABSOLUTE BASOPHILS # (AUTO) 0.1 10^3/uL (0.0-0.2); ABSOLUTE EOSINOPHILS # (AUTO) 0.8 10^3/uL (0.0-0.6); ABSOLUTE LYMPHOCYTES (AUTO) 1.8 10^3/uL (0.5-4.7); ABSOLUTE MONOCYTES (AUTO) 0.7 10^3/uL (0.1-1.4); BASOPHILS % (AUTO) 0.6 % (0-2); EOSINOPHILS % (AUTO) 7.3 % (0-6); HEMATOCRIT 42.5 % (37.9-51.0); HEMOGLOBIN 14.2 g/dL (13.5-17.0); HGB HCT DIFFERENCE 0.1; MEAN CORPUSCULAR HEMOGLOBIN 29.1 pg (27.0-33.4); MEAN CORPUSCULAR HGB CONC 33.4 g/dL (32.0-36.0); MEAN CORPUSCULAR VOLUME 87 fl (80-97); MONOCYTES % (AUTO) 7.1 % (3-13); PARTIAL THROMBOPLASTIN TIME 24.6 SEC (23.5-35.8); RED BLOOD COUNT 4.87 10^6/uL (4.35-5.55); RED CELL DISTRIBUTION WIDTH 13.5 % (11.5-14.0); WHITE BLOOD COUNT 10.3 10^3/uL (4.0-10.5)
[2016-06-06 15:49] LABS: ALANINE AMINOTRANSFERASE 43 U/L (21-72); ALBUMIN 4.7 g/dL (3.5-5.0); ALKALINE PHOSPHATASE 85 U/L (38-126); ANION GAP 15 (5-19); ASPARTATE AMINO TRANSFERASE 40 U/L (17-59); BILIRUBIN,DIRECT 0.2 mg/dL (0.0-0.4); BILIRUBIN,TOTAL 0.7 mg/dL (0.2-1.3); BLOOD UREA NITROGEN 29 mg/dL (7-20); CALCIUM 10.7 mg/dL (8.4-10.2); CARBON DIOXIDE 24 mmol/L (22-30); CHLORIDE 104 mmol/L (98-107); CREATINE KINASE 352 U/L (55-170); GLUCOSE 130 mg/dL (75-110); POTASSIUM 5.3 mmol/L (3.6-5.0); SODIUM 142.9 mmol/L (137-145)
[2016-06-06 16:00] LABS: CREATINE KINASE MB 2.72 ng/mL (<4.55)
[2016-06-06 16:02] LABS: TROPONIN I < 0.012 ng/mL
[2016-06-06] MEDS ORDERED: ASPIRIN 81 MG TABLET, CHEWABLE PO ONE (20:26)
[2016-06-06 23:12] VITALS: BP 124/94
[2016-06-07 00:55] LABS: CHOLESTEROL 135.53 mg/dL (0-200); Direct HDL 37 mg/dL (>40); TRIGLYCERIDES 148 mg/dL (<150)
[2016-06-07 01:05] LABS: DIRECT LDL 64 mg/dL (<100)
== END 2016-06-06 23:25 | disposition short-term general hospital (02) ==
LOC: ER 15:01
DX: I63.9 Cerebral infarction, unspecified (principal); R47.01 Aphasia; G81.91 Hemiplegia, unspecified affecting right dominant side; R00.0 Tachycardia, unspecified; I10 Essential (primary) hypertension; E10.9 Type 1 diabetes mellitus without complications; Z88.2 Allergy status to sulfonamides; Z87.891 Personal history of nicotine dependence
CPT/HCPCS: 36415; 70450; 70544; 70551; 71010; 80053; 80061; 82550; 82553; 83036; 84443; 84484; 85025; 85610; 85730; 93005; 93010; 99291

== ENCOUNTER 2016-07-30 08:29 | Emergency (ER) | payer BC ==
[2016-07-30 08:59] LABS: PROTHROMBIN TIME 14.3 SEC (11.4-15.4)
[2016-07-30 09:00] LABS: PARTIAL THROMBOPLASTIN TIME 36.2 SEC (23.5-35.8)
[2016-07-30 09:02] LABS: ABSOLUTE LYMPHOCYTES (AUTO) 1.1 10^3/uL (0.5-4.7); ABSOLUTE MONOCYTES (AUTO) 1.3 10^3/uL (0.1-1.4); ABSOLUTE NEUT (AUTO) 13.5 10^3/uL (1.7-8.2); BASOPHILS % (AUTO) 0.2 % (0-2); EOSINOPHILS % (AUTO) 0.2 % (0-6); HEMOGLOBIN 12.7 g/dL (13.5-17.0); HGB HCT DIFFERENCE -1.9; LYMPHOCYTES % (AUTO) 6.7 % (13-45); MEAN CORPUSCULAR HEMOGLOBIN 27.7 pg (27.0-33.4); MEAN CORPUSCULAR HGB CONC 31.9 g/dL (32.0-36.0); MEAN CORPUSCULAR VOLUME 87 fl (80-97); MONOCYTES % (AUTO) 8.4 % (3-13); RED CELL DISTRIBUTION WIDTH 13.6 % (11.5-14.0); SEGMENTED NEUTROPHILS % (AUTO) 84.5 % (42-78)
--- NOTE | 2016-07-30 09:06 | RADIOLOGY REPORT (SQ) ---
EXAM DESCRIPTION: CHEST SINGLE VIEW COMPLETED DATE/TIME: 07/30/2016 8:41 am REASON FOR STUDY: right sided weakness COMPARISON: 06/06/2016. EXAM PARAMETERS: NUMBER OF VIEWS: One view. TECHNIQUE: Single frontal radiographic view of the chest acquired. RADIATION DOSE: NA LIMITATIONS: None. FINDINGS: LUNGS AND PLEURA: Mild elevation of the right hemidiaphragm, unchanged. No opacities, mas ses or pneumothorax. No pleural effusion. MEDIASTINUM AND HILAR STRUCTURES: No masses. Contour normal. HEART AND VASCULAR STRUCTURES: Heart normal in size. Normal vasculature. BONES: No acute findings. HARDWARE: None in the chest. OTHER: No other significant finding. IMPRESSION: NO ACUTE RADIOGRAPHIC FINDING IN THE CHEST. TECHNICAL DOCUMENTATION: JOB ID: [id number]
--- NOTE | 2016-07-30 09:10 | RADIOLOGY REPORT (SQ) ---
EXAM DESCRIPTION: CT HEAD WITHOUT COMPLETED DATE/TIME: 07/30/2016 8:39 am REASON FOR STUDY: right sided weakness COMPARISON: CT dated 06/06/2016. MR dated 06/05/2016. TECHNIQUE: Axial images acquired through the brain without intravenous contrast. Images reviewed wi th bone, brain and subdural windows. Images stored on PACS. All CT scanners at this facility use dose modulation, iterative reconstruction, and/or weight based d osing when appropriate to reduce radiation dose to as low as reasonably achievable (ALARA). [facility]: Dose Right [facility]: CareDose [facility]: Dose Right [facility]: Teradose 4D [facility]: [email or web address] RADIATION DOSE: 64.61 mGy. LIMITATIONS: None. FINDINGS: VENTRICLES: Prominent. CEREBRUM: No masses. No hemorrhage. No midline shift. Areas of low density in the white matter mos t likely due to chronic micro-vascular ischemic change. Old lacunar white matter infarcts in the lef t frontal lobe. No evidence for acute infarction. CEREBELLUM: No masses. No hemorrhage. No alteration of density. No evidence for acute infarction. EXTRAAXIAL SPACES: Mild age-related involutional change. No fluid collections. No masses. ORBITS AND GLOBE: No intra- or extraconal masses. Normal contour of globe without masses. CALVARIUM: No fracture. PARANASAL SINUSES: No fluid or mucosal thickening. SOFT TISSUES: No mass or hematoma. OTHER: No other significant finding. IMPRESSION: MILD CHRONIC CHANGES OF ATROPHY AND MICROVASCULAR ISCHEMIA. OLD LACUNAR INFARCTS IN THE LEFT FRONTAL LOBE. NO ACUTE PROCESS. COMMENT: Pertinent positive or negative findings of the imaging study reported as a CRITICAL EXAM ryan SUGGS DO at09:04 on 07/30/2016. Category of Critical Exam: Stroke protocol. TECHNICAL DOCUMENTATION: JOB ID: [id number] Quality ID # [id number]: Final reports with documentation of one or more dose reduction techniques (e.g., Au tomated exposure control, adjustment of the mA and/or kV according to patient size, use of iterative reconstruction technique) 2010 [employer]- All Rights Reserved
--- NOTE | 2016-07-30 09:10 | ER Document Report ---
ED Neuro Symptoms/Deficit - General Mode of Arrival: Medic Information source: Patient Notes: Patient is a 65-year-old male who presents to the emergency department today with complaints of "not being able to get his right foot to do what he wants it to do". Patient was seen in this ED on July 06 and was diagnosed with a TIA. Patient states he went home and took a nap, when he woke up from the nap he was unable to talk or move so he was brought back to the ED. Patient was transferred to [facility] where he was monitored for approximately 2 weeks. Patient states he was told he had "neck clogs" but there was no surgical intervention performed. Patient states he has undergone physical therapy for his right lower extremity and had regained nearly all of his strength. Patient states this morning at 0630 he woke up to go to the restroom and he first noticed that he was having difficulty maneuvering his right foot. Patient states he was able to make it to the bathroom without any falls. Patient states his symptoms have gotten progressively worse since onset. Patient is on Plavix. Patient denies hitting his head or falls prior to arrival. Patient's has arrived midway through the patient's visit with additional information. Patient has never had TMJ in the past. states the patient has known periodontal disease, especially with molars. states the patient has had increasing pain with his right molars recently and pain/swelling have increased over the last few days despite using muscle relaxers. TRAVEL OUTSIDE OF THE [place] IN LAST 30 DAYS: No - HPI Awoke with symptoms: Yes Symptoms are: Worse/persistent Similar symptoms previously: Yes Recently seen / treated by doctor: Yes <THOMAS HERNÁNDEZ - Last Filed: 07/30/16 15:31> <MARIELA SUGGS - Last Filed: 07/30/16 17:55> - General Chief Complaint: S/S of Possible Stroke Stated Complaint: POSSIBLE STROKE Time Seen by Provider: 07/30/16 08:30 - Related Data Allergies/Adverse Reactions: Sulfa (Sulfonamide Antibiotics) Allergy (Verified 06/05/16 05:32) Past Medical History - General Information source: Patient, [facility] Records - Social History Smoking Status: Former Smoker Cigarette use (# per day): No Chew tobacco use (# tins/day): No - former usage Frequency of alcohol use: None - former usage Drug Abuse: None - former marijuana usage "decades ago" Lives with: Family Family History: Reviewed & Not Pertinent, CAD - Past Medical History Cardiac Medical History: Reports: Hx Atrial Fibrillation, Hx Hypercholesterolemia, Hx Hypertension Endocrine Medical History: Reports: Hx Diabetes Mellitus Type 1 - Type I Past Surgical History: Reports: Hx Orthopedic Surgery - Knee surgery, Other - Ablation for atrial fibrillation. <THOMAS HERNÁNDEZ - Last Filed: 07/30/16 15:31> Review of Systems - Review of Systems Constitutional: No symptoms reported EENT: No symptoms reported Cardiovascular: No symptoms reported Respiratory: No symptoms reported Gastrointestinal: No symptoms reported Genitourinary: No symptoms reported Male Genitourinary: No symptoms reported Musculoskeletal: No symptoms reported Skin: No symptoms reported Hematologic/Lymphatic: No symptoms reported Neurological/Psychological: See HPI, Other - "right foot wont work like I want it to". denies: Headaches -: Yes All other systems reviewed and negative <THOMAS HERNÁNDEZ - Last Filed: 07/30/16 15:31> Physical Exam - Vital signs Vitals: Pulse Ox 100 07/30/16 08:51 - Notes Notes: PHYSICAL EXAM GENERAL: Alert, interacts well. No acute distress. HEAD: Normocephalic, atraumatic. EYES: Pupils equal, round, and reactive to light. Extraocular movements intact. ENT: Oral mucosa moist, tongue midline. NECK: Full range of motion. Supple. Trachea midline. Mild erythema and swelling to right side of neck. Unable to completely open mouth, can open to approximately the width of one finger. LUNGS: Clear to auscultation bilaterally, no wheezes, rales, or rhonchi. No respiratory distress. HEART: Tachycardic, regular rhythm. No murmurs, gallops, or rubs. ABDOMEN: Soft, non-tender. Non-distended. Bowel sounds present in all 4 quadrants. EXTREMITIES: Moves all 4 extremities spontaneously. No edema, radial and dorsalis pedis pulses 2/4 bilaterally. No cyanosis. NEUROLOGICAL: Alert and oriented x3. Normal speech. Cranial nerves II through XII grossly intact. Biceps and patellar DTRs 2+ bilaterally. Slight right- sided facial droop not completely resolved with smile. 4/5 right lower extremity strength, 5/5 strength in RUE, LUE, and LLE. Decreased sharp/dull sensation in the right lower extremity. PSYCH: Normal affect, normal mood. SKIN: Warm, dry, normal turgor. No rashes or lesions noted. Swelling over the posterior cheek on the right side with erythema. - Neurological Speech: Normal Cerebellar coordination: Heel-obando - normal, Finger-nose rhombey - normal Motor strength normal: LUE, RUE, LLE Additional motor exam normals: Equal ux specialist, Weakness - RLE Sensory: Other - decreased sharp/dull sensation in RLE <THOMAS HERNÁNDEZ - Last Filed: 07/30/16 15:31> - Vital signs Vitals: Temp Pulse Resp BP Pulse Ox 97.4 F 126 H 14 134/84 H 99 07/30/16 08:44 07/30/16 08:44 07/30/16 08:44 07/30/16 08:44 07/30/16 08:44 <MARIELA SUGGS - Last Filed: 07/30/16 17:55> Course - Vital Signs Vital signs: Temp Pulse Resp BP Pulse Ox 100 07/30/16 08:51 - Laboratory Result Diagrams: 07/30/16 08:44 07/30/16 08:44 Laboratory results interpreted by me: 07/30/16 08:44 APTT 36.2 H <THOMAS HERNÁNDEZ - Last Filed: 07/30/16 15:31> - Re-evaluation Re-evalutation: 07/30/16 15:28 Candidate for TPA as he had a stroke within the past 2 months and he woke up with the symptoms. Symptoms are also rapidly improving. By the end of his visit he was able to walk without difficulty. CBC shows leukocytosis of 16.0 that could be coming either from his deep neck space infection or from the recent use of Florinef, hemoglobin minimally low at 12.7, platelets normal, coags show slight luminal prolonged PTT at 36.2 and INR slightly prolonged at 1.04. Chemistries grossly unremarkable only slightly elevated calcium, cardiac enzymes negative. CT scan of the head shows no acute bleeding or acute ischemia. X-ray shows no acute process. CT scan of the soft tissue of the neck shows a 3 cm x 4 cm abscess within the masseter muscle and extending down the neck causing some deviation of the trachea to the left but no actual narrowing of the airway. I did discuss these findings with the on- call oral surgeon at [facility] who states that they are only on-call for inpatient however if the patient is accepted by internal medicine they would be happy to consult and surgically take care of the abscess. I did start clindamycin for this abscess. I then discussed the patient with Dr. Guillermo Malik who is the hospitalist who accepts the patient to his service and will consult oral surgery from the hospital. 07/30/16 15:29 States that the patient's sinus tachycardia has been ongoing for several weeks. 07/30/16 17:54 Transport is at bedside, patient continues to be awake, alert and quite comfortable. Patient has now regained full use of his right foot. Patient is stable for transport. - Vital Signs Vital signs: Temp Pulse Resp BP Pulse Ox 97.6 F 113 H 18 184/77 H 99 07/30/16 14:59 07/30/16 15:00 07/30/16 15:00 07/30/16 15:00 07/30/16 15:00 - Laboratory Result Diagrams: 07/30/16 08:44 07/30/16 08:44 Laboratory results interpreted by me: 07/30/16 07/30/16 07/30/16 08:44 08:44 08:44 WBC 16.0 H Hgb 12.7 L MCHC 31.9 L Seg Neutrophils % 84.5 H Lymphocytes % 6.7 L Absolute Neutrophils 13.5 H APTT 36.2 H Chloride 96 L Glucose 152 H Calcium 10.4 H - EKG Interpretation by Me Additional EKG results interpreted by me: 07/30/16 15:29 Shows sinus tachycardia at a rate of 124, left axis deviation, multiple PACs PVCs, no ST segment elevations or depressions per my interpretation. <MARIELA SUGGS - Last Filed: 07/30/16 17:55> ED Alteplase Inc/Exc Criteria - Date/Time patient last known well: Date/Time: 07/29/16 19:00 - Date/Time patient arrived in ED: _: 07/30/16 - Inclusion Criteria: 1: Patient presented to ED within 3 hours of acute ischemic stroke symptom onset ? -: No 2: Did baseline CT exclude intracranial hemorrhage and/or other risk factors? -: Yes 3: Is the age of the patient 18 years of age or greater? -: Yes : If any of the above questions are answered "NO" then stop, patient is not a candidate for Alteplase, : If all of the above questions are answered "YES" then continue with Exclusion Criteria. - Exclusion Criteria: 1: Is there evidence of intracranial hemorrhage on baseline CT? -: No 2: Is there suspicion of subarachnoid hemorrhage (even if CT negative)? -: No 3: Is there a history of serious head trauma, recent previous stroke or DC within 3 months? -: Yes 4: Does the patient have a clinical presentation consistent with DC or post-DC pericarditis? -: No 5: Is there history of intracranial hemorrhage? -: No 6: On repeated measurement is Systolic BP greater than 185mmHg or Diastolic BP greater that 110 mmHg and is aggressive treatment needed to reduce blood pressure to these limits (e.g. constant infusion of an anti-hypertensive)? -: No 7: Did the patient awake with stroke symptoms? -: Yes 8: Has the patient had a lumbar puncture or an arterial puncture at a non- compressile site within 7 days? -: No 9: With in the last 14 days did the patient have surgery or major trauma? -: No 10: Is the patient or less than 2 weeks? -: No 11: Was there any active bleeding or acute trauma? -: No 12: Does the patient have intracranial neoplasm, arteriovenous malformation or aneurysm? -: No 13: Does the patient have abnormal glucose (less than 50 or greater than 400mg/ dl)? Record glucose in Comment. -: No 14: Patient has rapidly improving symptoms at the time Alteplase is to be Administered. -: Yes 15: Does the patient have any risks for bleeding, including but not limited to: a.: Current use of Coumadin with PT greater than 15 seconds or INR greater than 1.7. b.: Current use of Pradaxa (Dabigatran). c.: Heparin administereed within the past 48 hours and PTT elevated. d.: Platelet count less than 100,000/mm. e.: Major surgery or serious trauma within 14 days. f.: Gastrointestinal or gynecological urinary bleeding within 14 days. g.: Myocardial Infarction (DC) within 3 months. -: No : If the answer to any of the above questions is "YES" then stop, the patient is not a candidate for Alteplase. : If the answer to all of the above questions is "NO" then the patient may be eligible for the Administration of Alteplase. : If the patient is noted to have seizure activity at onset of Stroke symptoms; Consult Neurologist for further evaluation. - The patient is: -: Included and is eligible to receive Alteplase. *Initiate bed placement at higher level of care* Reviewd risks & benefits of thrombolytic therapy: I have reviewed the risks and benefits of thrombolytic therapy with the patient and/or his/her family. -: Excluded and not eligible to receive Alteplase for the above exclusions. --: Yes -: Excluded and not eligible to receive Alteplase for other reasons (specify in comments): - Diagnosis of TIA: -: Patient presented with transient symptoms that are now resolved and no other neurologic findings are currently present. List symptoms in comments. -: Yes -: Patient is NOT a candidate for tPA. -: Yes -: ____(put name in comment) has been consulted for admission and continued evaluation of risk factor assessment. Comment: Dr. Guillermo Malik <MARIELA SUGGS - Last Filed: 07/30/16 17:55> ED NIH Stroke Scale - NIH Stroke Scale When completed:: Protocol *: 1. NIH scale should be completed with appropriate accompanying assessment tools. *: 2. The NIH should reflect what the patient is capable of doing and should not be coached by the clinician. 1a. Level of Consciousness: 0=Alert;keenly responsive -: 1=Drowsy -: 2=Obtunded -: 3=Coma/unresponsive or reflex to noxious stimuli. 1a. Responses: 0 1b. Orientation Questions: a. What month is it? -: b. How old are you? -: 0=Answers both questions correctly. -: 1=Answers one question correctly or patient is intubated or has orotracheal trauma. -: 2=Answers neither question correctly. 1b. Responses: 0 1c. Response to commands: a. Open and close eyes? -: b. Assembly Loader and release hand? -: Credit is given despite weakness. Demonstration of task is permitted. Substitute command if hands cannot be used. -: 0=Performs both tasks correctly -: 1=Performs one task correctly -: 2=Performs neither task correctly 1c. Responses: 0 2. Gaze: Establish eye contact and instruct patient to "Follow my finger" -: 0=Normal -: 1=Partial gaze palsy. Gaze is abnormal in one or both eyes, but where forced deviation or total gaze paresis is not present. -: 2=Forced deviation or total gaze paresis. 2. Responses: 0 3. Visual Day: Sees fingers in all four quadrants. -: 0=No visual loss. -: 1=Partial hemianopsia. -: 2=Complete hemianopsia. -: 3=Bilateral hemianopsia (including Cortical blindness) 3. Responses: 0 4. Facial Movement: Instruct patient to: -: a. Show me your teeth -: b. Raise your eyebrows -: c. Close your eyes -: d. Smile -: 0=Normal symmetrical movement -: 1=Minor paralysis (flattened nasolabial fold, asymmetry on smiling). -: 2=Partial paralysis (total or near total paralysis of lower face). -: 3=Complete paralysis of upper and lower face 4. Responses: 1 5. Motor functions (left arm): Alternate sides and extend each arm with palms down (90 degrees if sitting or 45 degrees for supine). -: 0=No drift;limb holds for full 10 seconds. -: 1=Drift; limb holds but drifts down before full 10 seconds, but does not hit bed. -: 2=Some effort against gravity; limb cannot get to or maintain position. -: 3=No effort against gravity; limb falls. -: 4=No movement. -: UN=Amputation, joint fusion, explain in comments. 5. Responses (left arm): 0 5. Motor Functions (right arm): Alternate sides and extend each arm with palms down (90 degrees if sitting or 45 degrees for supine). -: 0=No drift;limb holds for full 10 seconds. -: 1=Drift; limb holds but drifts down before full 10 seconds, but does not hit bed. -: 2=Some effort against gravity; limb cannot get to or maintain position. -: 3=No effort against gravity; limb falls. -: 4=No movement. -: UN=Amputation, joint fusion, explain in comments. 5. Responses (right arm): 0 6. Motor Functions (left leg): With patient lying supine, alternate sides and extend each leg (30 degrees always while supine). -: 0=No drift, leg holds position for full 5 seconds -: 1=Drift; leg falls before full 5 seconds but does not hit bed. -: 2=Some effort against gravity, leg falls to bed but some effort against gravity. -: 3=No effort against gravity, leg falls to bed immediately. -: 4=No movement. -: UN=Amputation, joint fusion; explain in comments. 6. Responses (left leg): 0 6. Motor Functions (right leg): With patient lying supine, alternate sides and extend each leg (30 degrees always while supine). -: 0=No drift, leg holds position for full 5 seconds -: 1=Drift; leg falls before full 5 seconds but does not hit bed. -: 2=Some effort against gravity, leg falls to bed but some effort against gravity. -: 3=No effort against gravity, leg falls to bed immediately. -: 4=No movement. -: UN=Amputation, joint fusion; explain in comments. 6. Responses (right leg): 1 7. Limb Ataxia: With eyes open instruct patient to: -: a. "Touch your finger to your nose". -: b. "Touch your heel to your obando" -: 0=Absent -: 1=Present in one limb. -: 2=Present in two limbs. -: UN=Amputation or joint fusion; explain in comments. 7. Responses: 0 8. Sensory: Test sensation using pinprick or noxious stimuli. Test as many body parts as possible. -: 0=Normal;no sensory loss -: 1=Mile to moderate sensory loss (patient feels pin prick but is less sharp on affected side). -: 2=Severe or total sensory loss. 8. Responses: 0 9. Best Language: Instruct patient to: -: a. "Describe what you see in this picture." -: b. "Name the items in this picture." -: c. "Read these sentences." -: 0=No aphasia, normal -: 1=Mild to moderate aphasia. -: 2=Severe aphasia -: 3=Mute, global aphasia, no usable speech or auditory comprehension. 9. Responses: 0 10. Articulation, Dysarthia: Instruct patient to: -: "Read these words" or "Repeat these words" -: 0=Normal -: 1=Mild to moderate; patient may slur some words but can be understood without difficulty. -: 2=Severe; patients speech so slurred as to be unintelligible in the absence of dysphasia. -: UN=Intubated or other physical barrier, explain in comments. 10. Responses: 0 11. Extinction or inattention: 0=No abnormality -: 1= Visual, tactile, auditory, spatial, or personal inattention or extinction to bilateral simulation in one or the sensory modalities. -: 2=Profound morena-inattention or morena-inattention to more than one modality; does not recognize own hand. 11. Responses: 0 Total Score: 2 <THOMAS HERNÁNDEZ - Last Filed: 07/30/16 15:31> Discharge <THOMAS HERNÁNDEZ - Last Filed: 07/30/16 15:31> - Discharge Scribe Attestation: 07/30/16 17:54 I personally performed the services described in the documentation, reviewed and edited the documentation which was dictated to the scribe in my presence, and it accurately records my words and actions. <MARIELA SUGGS - Last Filed: 07/30/16 17:55> - Discharge Clinical Impression: Abscess of weight reducing technician space of mouth TIA (transient ischemic attack) Qualifiers: Transient cerebral ischemia type: carotid artery syndrome (hemispheric) Qualified Code(s): G45.1 - Carotid artery syndrome (hemispheric) HTN (hypertension) Qualifiers: Hypertension type: essential hypertension Qualified Code(s): I10 - Essential ( primary) hypertension Condition: Fair Disposition: ON LICENSE OF [facility] Referrals: PIERRE PRETTY MD [Primary Care Provider] - Follow up as needed Scribe Documentation - Scribe Written by Scribe:: Salome Jacinto, 07/30/2016 0942 acting as scribe for :: Mirna <THOMAS HERNÁNDEZ - Last Filed: 07/30/16 15:31>
[2016-07-30 09:23] LABS: ALANINE AMINOTRANSFERASE 32 U/L (21-72); ALBUMIN 3.9 g/dL (3.5-5.0); ALKALINE PHOSPHATASE 108 U/L (38-126); ANION GAP 17 (5-19); ASPARTATE AMINO TRANSFERASE 28 U/L (17-59); BILIRUBIN,DIRECT 0.4 mg/dL (0.0-0.4); BILIRUBIN,TOTAL 0.8 mg/dL (0.2-1.3); BLOOD UREA NITROGEN 16 mg/dL (7-20); CALCIUM 10.4 mg/dL (8.4-10.2); CARBON DIOXIDE 28 mmol/L (22-30); CHLORIDE 96 mmol/L (98-107); CREATINE KINASE 72 U/L (55-170); CREATININE RESULT 1.11 mg/dL (0.52-1.25); GLUCOSE 152 mg/dL (75-110); POTASSIUM 4.4 mmol/L (3.6-5.0); SODIUM 141.4 mmol/L (137-145); TOTAL PROTEIN 7.9 g/dL (6.3-8.2)
[2016-07-30 09:32] LABS: CREATINE KINASE MB 1.98 ng/mL (<4.55)
[2016-07-30 09:34] LABS: TROPONIN I < 0.012 ng/mL
--- NOTE | 2016-07-30 10:02 | EKG REPORT ---
SEVERITY:- ABNORMAL ECG - SINUS TACHYCARDIA MULTIPLE VENTRICULAR PREMATURE COMPLEXES PROBABLE LEFT ATRIAL ABNORMALITY LEFT AXIS DEVIATION : Confirmed by: Amanuel Rondon 30-Jul-2016 10:02:06
--- NOTE | 2016-07-30 13:03 | RADIOLOGY REPORT (SQ) ---
EXAM DESCRIPTION: CT SOFT TISSUE NECK WITH COMPLETED DATE/TIME: 07/30/2016 12:20 pm REASON FOR STUDY: right sided neck and facial swelling COMPARISON: CT BRAIN 06/04/2016, 06/06/2016, 07/30/2016 MRI AND MRA TE[facility]ON OF [facility] 06/05/2016, 06/06/2016 Carotid Doppler 06/05/2016 TECHNIQUE: Post IV contrasted scanning from skull base through lung apices with review of bone, soft tissue and lung windows. Reconstructed coronal and sagittal MPR images reviewed. All images stored on PACS. All CT scanners at this facility use dose modulation, iterative reconstruction, and/or weight based d osing when appropriate to reduce radiation dose to as low as reasonably achievable (ALARA). [facility]: Dose Right [facility]: CareDose [facility]: Dose Right [facility]: Teradose 4D [facility]: [employer] CONTRAST TYPE AND DOSE: 75mL Isovue 370- low osmolar. RENAL FUNCTION: Creatinine 1.1 RADIATION DOSE: 16.38 mGy. LIMITATIONS: None. FINDINGS: There is superficial right neck cellulitis along the submandibular region without well-cir cumscribed abscess. There is a enlisted aircrew/aerial observer/gunner space peripheral rim enhancing abscess, 4 x 3 cm in size. This extends from th e posterior right upper molar tooth STIR of the pterygoid and massive air muscles towards the right t emporomandibular joint, and is best shown on axial images 29 through 43. The posterior right upper m olar tooth has dental caries and periapical tooth root lucency. There is mild local mass effect with swelling of the right muscles in the enlisted aircrew/aerial observer/gunner space and right to left shift of the midline airway without significant airway narrowing. There is adjacent mucous m embrane thickening in the right maxillary sinus without right maxillary sinus air-fluid level. These findings were discussed with Dr. Anderson. SKULL BASE: Limited view of the inferior brain parenchyma demonstrates stable small vessel disease in the bifrontal white matter. Moderate atherosclerotic change intracranial along the bilateral parase llar carotid arteries at the semin[place] Mae, with about 50% stenosis. MAJOR SALIVARY GLANDS: No solid or cystic masses. No inflammatory changes. LYMPHADENOPATHY: No adenopathy. MUCOSAL MASSES OR ASYMMETRY: No mucosal masses or asymmetry. LARYNX/CORDS: No abnormal findings. VASCULAR STRUCTURES: Heavily calcified right distal common carotid artery/proximal internal carotid a rtery with greater than 70% stenosis of the proximal right internal carotid artery. This correlates with carotid Doppler 06/05/2016. Calcific plaque at the left carotid bifurcation with about 50% diamet er narrowing of the proximal left ICA. LUNG APICES: Clear. BONES: Multilevel degenerative changes in the cervical spine high-grade right C3-4 foraminal narrowin g, moderate right C4-5 foraminal narrowing, from facet and uncovertebral hypertrophy. THYROID: Normal size. No masses. PARANASAL SINUSES: Mucous membrane thickening along the floor right maxillary sinus OTHER: No other significant finding. IMPRESSION: Right enlisted aircrew/aerial observer/gunner space abscess 3 x 4 cm in size, tracking from the right posterior upper molar tooth to the temporomandibular joint. Mild displacement of the airway towards the left withou t significant airway narrowing. Reactive cellulitis in the right submandibular region. Bilateral atherosclerotic change at the carotid bifurcations with greater than 70% stenosis right pro ximal ICA. Results discussed with the emergency room attending physician TECHNICAL DOCUMENTATION: JOB ID: [id number] Quality ID # [id number]: Final reports with documentation of one or more dose reduction techniques (e.g., Au tomated exposure control, adjustment of the mA and/or kV according to patient size, use of iterative reconstruction technique) 2010 [employer]- All Rights Reserved
[2016-07-30] MEDS ORDERED: CLINDAMYCIN 600 MG/D5W RTU 50 ML IV ONE (13:31)
[2016-07-30 17:40] VITALS: BP 153/95
== END 2016-07-30 17:46 | disposition short-term general hospital (02) ==
LOC: ER 08:29
DX: K12.2 Cellulitis and abscess of mouth (principal); G45.1 Carotid artery syndrome (hemispheric); I10 Essential (primary) hypertension; I48.91 Unspecified atrial fibrillation; E78.00 Pure hypercholesterolemia, unspecified; E10.9 Type 1 diabetes mellitus without complications; Z87.891 Personal history of nicotine dependence; Z88.2 Allergy status to sulfonamides; Z79.02 Long term (current) use of antithrombotics/antiplatelets
CPT/HCPCS: 36415; 70450; 70491; 71010; 80053; 82550; 82553; 84484; 85025; 85610; 85730; 87040; 93005; 93010; 96365; 99285